=== PATIENT | male | born 1970 | race Caucasian/White ===

== ENCOUNTER 2016-06-11 18:52 | Observation (INO) | payer OTHER ==
[~2016-06-11] VITALS: Ht 182.9 cm; Wt 79.0 kg
[~2016-06-11 18:52] MED LIST: BACT800T5 PO; CLIN1CAP5 PO; LACTATED RINGER'S 1000 ML INJ 3,000 ML IV ONE; NEOSTIGMINE 3 MG/3 ML SYR IV ONE; ONDANSETRON HCL 4 MG/2 ML VIAL IV PUSH ONE; OXYC1SOL5 PO; PROPOFOL 200 MG/20 ML AMP IV ONE
[2016-06-11 18:55] VITALS: O2SAT 99
[2016-06-11] MEDS ORDERED: DIPHTH/TETANUS/ACEL PERTUSSIS (BOOSTER) 0.5 ML VIAL/PFS IM ONE (18:59)
[2016-06-11] MEDS ORDERED: ceFAZolin 2 GM PREMIX 50 ML ONE (19:02)
[2016-06-11] MEDS ORDERED: LIDOCAINE 2%/EPINEPHrine 1:100,000 50ML MDV ONE (19:07)
[2016-06-11] MEDS ORDERED: fentaNYL CITRATE 250 MCG/5 ML AMP ONE ×2 (19:25→19:26)
[2016-06-11] MEDS ORDERED: HYDROmorphone HCL PF 2 MG/ML VIAL ONE (19:26)
[2016-06-11] MEDS ORDERED: HEPARIN SODIUM - SQ 10,000 UNITS/ML VIAL ONE (19:53)
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
[2016-06-11] MEDS ORDERED: BUPIVACAINE HCL PF 0.5% 30 ML VIAL ONE (20:57)
[2016-06-11] MEDS ORDERED: ACETAMINOPHEN/HYDROcodone 325 MG/5 MG TAB PO PRN (21:00)
[2016-06-11] MEDS ORDERED: PANTOPRAZOLE SODIUM 40 MG VIAL IVP SCH (21:00)
[2016-06-11] MEDS ORDERED: ENALAPRILAT 1.25 MG/ML VIAL IV PRN (21:00)
[2016-06-11] MEDS ORDERED: ONDANSETRON HCL 4 MG/2 ML VIAL IV PRN (21:00)
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
[2016-06-11 21:42] LABS: I-STAT POTASSIUM 3.7 MMOL/L (3.5-4.9)
[2016-06-11] MEDS ORDERED: SODIUM CHLOR 0.9% 1000 ML INJ 1,000 ML IV SCH (22:00)
[2016-06-11 22:16] LABS: HEMATOCRIT 22.4 % (39.0-51.0); REVIEW FLAG FINAL
--- NOTE | 2016-06-11 22:37 | HHI.PR ---
Immediate Post Op Note Procedure Date: Jun 11, 2016 Pre Op Diagnosis: (1) Forearm laceration with complication Post Op Diagnosis: (1) Forearm laceration with complication Surgeon: Hillary East Reception Centre Manager(s): None Procedure: 1. Repair of the left ulnar nerve at wrist with allograft tube. 2. Repair ulnar sensory nerve and wrist with allograft tube. 3. Repair of flexor carpi ulnaris. 4. Exploration of left forearm. 5. Closure of 10 cm of laceration left forearm. 6. Closure of 4 lacerations of right forearm and hand measured 12 cm in length total. Findings: The patient completely lacerated the ulnar nerve and artery, as well as the flexor carpi ulnaris and the dorsal sensory branch of the ulnar nerve. He also had several lacerations on the right upper extremity. At the completion of the procedure, both nerves have been repaired. The tendons of the repaired. The ulnar artery and repaired by the vascular surgeon. Anesthesia: General Drains: None Tourniquet time (min at mmHg) 1 hour and 21 minutes at 200 mmHg. Patient to: PACU Patient Condition: Good Implant/Devices: SEE IMPLANT LOG (if applicable) Date/Time of Procedure: SEE SURGICAL CARE RECORD Hillary East MD Jun 11, 2016 22:37
--- NOTE | 2016-06-11 23:04 | RADRPT ---
EXAM DATE/TIME: 06/11/2016 22:44 [facility] COMPARISON: No previous studies available for comparison. INDICATIONS : Central line placement MEDICAL HISTORY : None. SURGICAL HISTORY : None. ENCOUNTER: Initial ACUITY: 1 day PAIN SCORE: 0/10 LOCATION: Bilateral chest FINDINGS: Right central line tip is in superior vena cava. There is no pneumothorax. No effusion. Minimal subse gmental opacity in the lungs. CONCLUSION: 1. Right central line tip in satisfactory position without pneumothorax. Hussain Rich MD on June 11, 2016 at 23:01 Board Certified Radiologist. This report was verified electronically.
[2016-06-11] MEDS ORDERED: DO NOT ADM ANY ANTICOAGULANT DRUGS XX PRN (23:15)
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
[2016-06-11] MEDS: MULTIVITAMIN INJ 10 ML, THIAMINE INJ 100 MG, FOLIC ACID INJ 1 MG in SODIUM CHLORID 0.9%... IV SCH (23:50)
[2016-06-12] VITALS (8 sets, daily range): BP systolic 113–130; BP diastolic 55–75; PULSE 80–93; RESP 16–20; TEMP 96–98.5; O2SAT 95–99
[2016-06-12] MEDS: HYDROmorphone HCL PF 1 MG/ML VIAL IVP PRN ×6 (01:08→21:10)
[2016-06-12] MEDS: ceFAZolin 2 GM PREMIX 50 ML IV SCH ×3 (03:39→18:04)
[2016-06-12] MEDS: ACETAMINOPHEN/HYDROcodone 325 MG/5 MG TAB PO PRN ×2 (03:44→23:07)
[2016-06-12 05:05] LABS: BASOPHIL % 0.1 % (0.0-2.0); EOSINOPHIL % 0.2 % (0.0-4.0); HEMATOCRIT 21.6 % (39.0-51.0); HEMO FLAGS DIFF FINAL; LYMPH % 15.3 % (9.0-44.0); LYMPHOCYTE # 0.8 TH/MM3 (1.0-4.8); MEAN CELL VOLUME 87.4 FL (80.0-100.0); MEAN CORPUSCULAR HEMOGLOBIN 30.6 PG (27.0-34.0); MONO % 2.6 % (0.0-8.0); NEUT % 81.8 % (16.0-70.0); PLATELET COUNT 110 TH/MM3 (150-450); RED BLOOD COUNT 2.47 MIL/MM3 (4.50-5.90); RED CELL DISTRIBUTION WIDTH 15.1 % (11.6-17.2); WHITE BLOOD COUNT 4.9 TH/MM3 (4.0-11.0)
[2016-06-12] MEDS: SODIUM CHLORIDE 0.9% FLUSH 5 ML FLUSH IVF PRN ×2 (08:05→21:10)
[2016-06-12] MEDS: DOCUSATE SODIUM 50 MG/SENNA 8.6 MG TAB PO SCH ×2 (11:35→20:57)
[2016-06-12] MEDS: FAMOTIDINE 20 MG TAB PO SCH ×2 (11:35→20:57)
[2016-06-12] MEDS: MAGNESIUM HYDROXIDE SUSP 30 ML CUP PO SCH (11:35)
--- NOTE | 2016-06-12 16:50 | HHI.PR ---
Subjective Subjective Notes Pain controlled. Reports numbness in left pinky finger. Objective Vitals/I&O Vital Signs Date Time Temp Pulse Resp B/P Pulse Ox O2 Delivery O2 Flow Rate FiO2 06/12/16 16:43 97.4 87 17 113/55 95 06/12/16 07:37 Room Air 06/11/16 23:00 3 Labs Laboratory Tests Test 06/11/16 06/11/16 06/12/16 06/12/16 19:05 22:03 04:45 11:46 Bedside Hemoglobin 12.2 Bedside Hematocrit 36.0 Bedside Sodium 142 Bedside Potassium 3.7 Bedside Chloride 103 Bedside Blood Urea Nitrogen 15 Bedside Creatinine 0.9 Bedside Glucose 135 Blood Type O POSITIVE Antibody Screen NEGATIVE Crossmatch Leukocyte-Reduced Red Blood Cells Blood Bank Comment Hemoglobin 7.9 7.6 Hematocrit 22.4 21.6 White Blood Count 4.9 Red Blood Count 2.47 Mean Corpuscular Volume 87.4 Mean Corpuscular Hemoglobin 30.6 Mean Corpuscular Hemoglobin 35.0 Concent Red Cell Distribution Width 15.1 Platelet Count 110 Mean Platelet Volume 8.7 Neutrophils (%) (Auto) 81.8 Lymphocytes (%) (Auto) 15.3 Monocytes (%) (Auto) 2.6 Eosinophils (%) (Auto) 0.2 Basophils (%) (Auto) 0.1 Neutrophils # (Auto) 4.0 Lymphocytes # (Auto) 0.8 Monocytes # (Auto) 0.1 Eosinophils # (Auto) 0.0 Basophils # (Auto) 0.0 CBC Comment DIFF FINAL Differential Comment Nasal Screen MRSA (PCR) NEGATIVE Radiology Last Impressions Chest X-Ray 06/11/16 0000 Signed Impressions: Service Date/Time: Saturday, June 11, 2016 22:44 - CONCLUSION: 1. Right central line tip in satisfactory position without pneumothorax. Hussain Rich MD Narrative Exam GENERAL: 46-year-old well-nourished, well developed male lying in bed. SKIN: Warm and dry. ENT: No nasal bleeding or discharge. Mucous membranes pink and moist. NECK: Trachea midline. No JVD. CARDIOVASCULAR: Regular rate and rhythm. RESPIRATORY: No accessory muscle use. Lungs clear to auscultation. Breath sounds equal bilaterally. GASTROINTESTINAL: Abdomen soft, non-tender, nondistended. + BS. MUSCULOSKELETAL: Extremities without cyanosis, or edema. Left forearm soft splint in place. Right forearm dry dressing in place. NEUROLOGICAL: Awake and alert. Normal speech. A/P Assessment and Plan INJURIES: LEFT wrist/ulnar artery lac RIGHT FA lacerations (sutures) 06/12: Left wrist exploration for bleeding. Left wrist nerve and tendon repair. Left ulnar artery repair. Diet: Regular and tolerating. Pulmonary: IS. Encourage patient use Pain: IV Dilaudid, [place]. Pain controlled. Added Neurontin for nerve pain. Activity: OOB. OT evaluating. GI: Pepcid Bowel: Leisa-Colace, MOM DVT: SCD DC IVF. CBC in a.m. Obtain peripheral IV then DC central line. Wound care: Change dressing to right forearm daily. Plan of care discussed patient at bedside. Attending Statement patient seen at bedside no change reported in clinical exam still with finger numbness vascular and hand managing working on dc pending their recs reg diet Attestation The exam, history, and the medical decision-making described in the above note were completed with the assistance of the mid-level provider. I reviewed and agree with the findings presented. I attest that I had a gvgf-[id number] encounter with the patient on the same day, and personally performed and documented my assessment and findings in the medical record. Carlos Salas Jun 12, 2016 16:50 Fran Diaz MD Jun 21, 2016 03:02
[2016-06-12] MEDS: GABAPENTIN 300 MG CAP PO SCH (18:04)
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
[2016-06-12] MEDS: MULTIVITAMIN INJ 10 ML, THIAMINE INJ 100 MG, FOLIC ACID INJ 1 MG in SODIUM CHLORID 0.9%... IV SCH (23:01)
[2016-06-13] MEDS: HYDROmorphone HCL PF 1 MG/ML VIAL IVP PRN ×2 (00:03→07:57)
[2016-06-13 00:04] VITALS: BP 129/73; PULSE 85; RESP 18; TEMP 96.4; O2SAT 98
[2016-06-13] MEDS: ceFAZolin 2 GM PREMIX 50 ML IV SCH ×2 (02:50→10:55)
[2016-06-13] MEDS: ACETAMINOPHEN/HYDROcodone 325 MG/5 MG TAB PO PRN ×3 (05:29→15:46)
[2016-06-13 07:07] LABS: HEMATOCRIT 21.2 % (39.0-51.0); MEAN CELL VOLUME 87.9 FL (80.0-100.0); MEAN CORPUSCULAR HEMOGLOBIN 30.4 PG (27.0-34.0); MEAN CORPUSCULAR HGB CONC 34.6 % (32.0-36.0); PLATELET COUNT 118 TH/MM3 (150-450); RED BLOOD COUNT 2.42 MIL/MM3 (4.50-5.90); RED CELL DISTRIBUTION WIDTH 15.1 % (11.6-17.2); REVIEW FLAG FINAL; WHITE BLOOD COUNT 5.7 TH/MM3 (4.0-11.0)
[2016-06-13] MEDS: DOCUSATE SODIUM 50 MG/SENNA 8.6 MG TAB PO SCH (07:51)
[2016-06-13] MEDS: GABAPENTIN 300 MG CAP PO SCH ×2 (07:51→12:38)
[2016-06-13] MEDS: MAGNESIUM HYDROXIDE SUSP 30 ML CUP PO SCH (07:51)
[2016-06-13] MEDS: FAMOTIDINE 20 MG TAB PO SCH (07:52)
[2016-06-13 08:00] VITALS: BP 123/74; PULSE 72; RESP 16; TEMP 96.5; O2SAT 95
[2016-06-13 12:00] VITALS: BP 142/82; PULSE 88; RESP 16; TEMP 97.4; O2SAT 96
[2016-06-13] MEDS ORDERED: HYDR-3516 PO (12:29)
[2016-06-13 14:14] VITALS: O2SAT 96
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
[2016-06-13 18:05] VITALS: O2SAT 96
--- NOTE | 2016-06-13 21:19 | MP ---
cc: MARILEE FRANCO MD DATE OF SURGERY: 06/12/2016. PREOPERATIVE DIAGNOSIS: Trauma to the left arm, incidental cut with glass over the left wrist, transection of the left ulnar artery, left ulnar nerve and flexor carpi ulnaris muscle. POSTOPERATIVE DIAGNOSIS: Trauma to the left arm, incidental cut with glass over the left wrist, transection of the left ulnar artery, left ulnar nerve and flexor carpi ulnaris muscle. OPERATIVE PROCEDURE PERFORMED: Irrigation and repair of the ulnar artery primary anastomosis. SURGEON: Marilee Franco M.D. ANESTHESIA: General. ESTIMATED BLOOD LOSS: 30 cc. INDICATIONS FOR THE PROCEDURE: This gentleman sustained injury as above-noted and was brought to the operating room. The repair of the nerves and tendons was carried out by Dr. East. I was asked to attend the vascular injury. After prepping and draping of the patient, incision was evaluated. the patient had a jagged laceration that crossed the left wrist, mainly on the medial aspect of the volar side and then went somewhat upward. The incision was explored. As above-noted, the patient had transected the ulnar nerve. He had also transected the cutaneous nerve as well as the ulnar artery. The distal end of the ulnar artery was easily identified while the proximal part of the ulnar artery was not visible; therefore, the incision was extended longitudinally up alongside the arm and then proximally, the ulnar artery was identified and dissected free to gain length. The ulnar artery was freshened up by removing the jagged end with the [place] scissors and then a #3 Shaun was inserted and passed up. There was brisk bleeding downward. Yasargil clamps were applied. Then the ulnar artery was irrigated with saline proximally and distally. It was repaired easily with 6-0 Prolene interrupted stitches and blood flow was re-established. The patient had a bounding pulse in the hand after the repair. The rest of the procedure was performed by Dr. East. Marilee LEMUS/GRACIE /4:59 PM /9:13 PM
== END 2016-06-13 18:12 | disposition home or self-care (01) ==
LOC: HOR 18:52 → NEDA 19:54 → OBSVTOIN 19:54 → INTOOBSV 19:54 → HPAC 20:18 → N06A 06-12 00:32
PROVIDERS: ADMIT Surgery; ATTEND Surgery
DX: S65.012A Laceration of ulnar artery at wrist and hand level of left arm, initial encounter (principal); S61.512A Laceration without foreign body of left wrist, initial encounter; S64.02XA Injury of ulnar nerve at wrist and hand level of left arm, initial encounter; S61.411A Laceration without foreign body of right hand, initial encounter; S51.811A Laceration without foreign body of right forearm, initial encounter; I10 Essential (primary) hypertension; W25.XXXA Contact with sharp glass, initial encounter; Y93.55 Activity, bike riding
CPT/HCPCS: 01840; 12001; 13121; 13122; 25260; 35206; 64910; 71010; 82435; 82565; 82947; 84132; 84295; 84520; 85014; 85018; 85025; 85027; 86850; 86900; 86901; 86920; 87641; 90471; 90715; 94150; 96374; 97167; 97535; 99285; C1757; C9113; C9352; G0378; J0690; J1170; J1644; J2405; J2710; J3010; J3411; J7030; J7040; J7120; 99291; G0390